=== PATIENT | male | born 1930 | race African-American/Black ===

== ENCOUNTER 2016-05-29 17:46 | Emergency (ER) | payer OTHER ==
[~2016-05-29] VITALS: Ht 172.7 cm; Wt 75.0 kg
[2016-05-29] MEDS ORDERED: FINA5TAB11 PO (18:17)
[2016-05-29] MEDS ORDERED: FURO20TA4 PO (18:17)
[2016-05-29] MEDS ORDERED: PANT40TA4 PO (18:17)
[2016-05-29] MEDS ORDERED: EPOETIN (18:17)
[2016-05-29 21:35] LABS: BASOPHILS % 1.6 % (0.0-2.0); EOSINOPHILS % 3.9 % (0.0-5.0); HEMOGLOBIN. 8.9 g/dL (14.0-18.0); LYMPHOCYTES % 11.4 % (20.0-50.0); MEAN CORPUSCULAR HEMOGLOBIN 29.6 pg (28.0-32.0); MEAN CORPUSCULAR HGB CONC 32.9 g/dL (31.0-37.0); MEAN PLATELET VOLUME 7.5 fl (7.4-10.4); MONOCYTES % 6.7 % (2.0-8.0); NEUTROPHILS % 76.4 % (40.0-76.0); PLATELET 188 x1000/uL (130-400); RED CELL DISTRIBUTION WIDTH 15.5 % (11.6-14.6); WHITE BLOOD COUNT 8.5 x1000/uL (4.5-11.0)
[2016-05-29 21:43] LABS: INR 1.2; PARTIAL THROMBOPLASTIN TIME 33.5 sec (24.0-34.0); PROTHROMBIN TIME 12.7 sec
[2016-05-29 21:44] LABS: AMMONIA 43 uMol/L (<32); INDEX HEMOLYSI 1 (1-3)
[2016-05-29 21:49] LABS: ALANINE AMINOTRANSFERASE 23 IU/L (13-61); ALBUMIN 1.8 g/dL (3.4-5.0); ANION GAP 15; CALCIUM 7.7 mg/dL (8.5-10.1); CARBON DIOXIDE 30 mEq/L (21-32); CHLORIDE 100 mEq/L (98-107); INDEX HEMOLYSI 1 (1-3); INDEX ICTERIC 1 (1-4); INDEX LIPEMIC 1 (1-3); LIPASE 142 IU/L (73-393); UREA NITROGEN BLOOD 74 mg/dL (7-21); eGFR 17 mL/min (>60)
[2016-05-29 21:52] LABS: TROPONIN I 0.16 ng/mL (0.00-0.04)
[2016-05-29 22:03] LABS: NT PRO B-TYPE NATRIURETIC PEP 61920 pg/mL (5-125)
[2016-05-29] MEDS ORDERED: KCL 20MEQ/100ML PREMIX 100 ML IV NR (23:30)
[2016-05-30] MEDS ORDERED: LORAZEPAM 2MG/ML CPJ IV ONE
[2016-05-30] MEDS: LORAZEPAM 0.5MG TABLET PO ONE ×2 (04:08→04:15)
[2016-05-30 04:52] VITALS: BP 166/81
== END 2016-05-30 05:05 | disposition home or self-care (01) ==
LOC: ER 17:47
DX: K74.60 Unspecified cirrhosis of liver (principal); K70.11 Alcoholic hepatitis with ascites; I12.9 Hypertensive chronic kidney disease with stage 1 through stage 4 chronic kidney disease, or unspecified chronic kidney disease; I11.0 Hypertensive heart disease with heart failure; N18.9 Chronic kidney disease, unspecified; J44.9 Chronic obstructive pulmonary disease, unspecified; I50.9 Heart failure, unspecified; E87.6 Hypokalemia; E11.9 Type 2 diabetes mellitus without complications; E78.00 Pure hypercholesterolemia, unspecified; D64.9 Anemia, unspecified; Z86.73 Personal history of transient ischemic attack (TIA), and cerebral infarction without residual deficits; Z88.0 Allergy status to penicillin; Z95.1 Presence of aortocoronary bypass graft
CPT/HCPCS: 36415; 51702; 71010; 76700; 80053; 82140; 83690; 83880; 84484; 85025; 85610; 85730; 93005; 96361; 96365; 96366; 96374; 96375; 99285; J2060; J3480; J7030